=== PATIENT | male | born 1950 | race Caucasian/White ===

== ENCOUNTER 2022-06-16 17:09 | Emergency (ER) | payer MEDICARE, SELFPAY ==
--- NOTE | ~2022-06-16 | XR_ITS ---
EXAMINATION: XR CHEST CLINICAL INFORMATION: Shortness of breath COMPARISON: None TECHNIQUE: Frontal view of the chest was obtained. 6:13 PM FINDINGS: Blunting of left costophrenic angle due to pleural effusion and/or pleural thickening. There is no right-sided pleural effusion. Lung volume is low. This causes crowding of bronchovascular markings. Allowing for the low inspiratory effort there is no significant pulmonary vascular congestion. There is no focal consolidation. XR/XR chest 1V IMPRESSION: 1. Blunting of left costophrenic angle due to pleural effusion and/or pleural thickening. 2. No significant pulmonary vascular congestion.
[2022-06-16 17:16] VITALS: BP 121/82; PULSE 90; RESP 20; TEMP 36.7; O2SAT 95; BMI 41.8
--- NOTE | 2022-06-16 17:22 | ECG_ITS ---
Test Reason : sob Blood Pressure : / mmHG Vent. Rate : 092 BPM Atrial Rate : 000 BPM P-R Int : 000 ms QRS Dur : 096 ms QT Int : 378 ms P-R-T Axes : 000 -32 123 degrees QTc Int : 467 ms Atrial fibrillation with premature ventricular or aberrantly conducted complexes Left axis deviation Inferior infarct , age undetermined Anterior infarct , age undetermined T wave abnormality, consider lateral ischemia Abnormal ECG No previous ECGs available Referred By: Generic ED Physician Electronically Signed By:Yahir Munoz
--- NOTE | 2022-06-16 17:47 | ED.SOB ---
HPI - SOB/Dyspnea General Chief Complaint: Dyspnea Stated Complaint: DIFF BREATHING Related Data Allergies Allergy/AdvReac Type Severity Reaction Status Date / Time No Known Allergies Allergy Verified 06/16/22 17:47 [facility] Social History Social History Advance Directives: No Advance Directives Information Provided: No Physical Exam Vital Signs: Vital Signs: Last Vital Signs Temp 98.0 F 06/16/22 17:16 Pulse 90 06/16/22 17:16 Resp 20 06/16/22 17:16 BP 121/82 06/16/22 17:16 Pulse Ox 95 06/16/22 17:16 O2 Del Method 06/16/22 17:16 BMI result Body Mass Index 41.8 Course Course Course Narrative: This is a rapid medical exam. Deferred additional HPI, ROS, PE to primary provider. 72 yo male with history of lung cancer here with chronic shortness of breath for years with negative w/us at [facility]. Today worsening shortness of breath this morning. No chest pain, fever, cough. VSS. Will obtain labs, EKG, chest x-ray, bile 10 Medical Decision Making Lab Data 06/16/22 17:35 06/16/22 17:35 Labs: Lab Results 06/16/22 06/16/22 06/16/22 Range/Units 17:35 17:35 17:35 WBC 7.8 (4.8-10.8) X10*3/uL RBC 4.20 L (4.60-5.80) X10*6/uL Hgb 11.1 L (14.0-18.0) g/dl Hct 36.4 L (42.0-52.0) % MCV 86.7 (80.0-98.0) fL MCH 26.4 L (27.0-33.0) pg MCHC 30.5 L (31.0-36.0) g/dl RDW 15.4 (11.0-16.0) % Plt Count 265 (160-400) X10*3/uL MPV 10.5 (9.4-12.4) fL Immature Gran % (Auto) 0.4 (0.0-0.4) % Neut % (Auto) 75.3 H (45-73) % Lymph % (Auto) 12.1 L (20-40) % [place] % (Auto) 7.5 (2-11) % Eos % (Auto) 4.1 H (0-4) % Baso % (Auto) 0.6 (0-2) % Lymph # (Auto) 1.0 L (1.2-4.9) X10*3/uL [place] # (Auto) 0.6 (0.1-1.2) X10*3/uL Eos # (Auto) 0.3 (0.0-0.4) X10*3/uL Baso # (Auto) 0.1 (0.0-0.2) X10*3/uL Abs Immat Gran (auto) 0.03 (0.00-0.03) X10*3/uL Absolute Neuts (auto) 5.9 (2.0-8.3) x10*3/uL Absolute Nucleated RBC 0.000 (0.0-0.012) X10*3/uL Nucleated RBC % (auto) 0.0 (0.0-0.2) /100WBC Sodium 146 H (135-145) mmol/L Potassium 4.0 (3.3-5.1) mmol/L Chloride 109 H (96-108) mmol/L Carbon Dioxide 24 (22-29) mmol/L Anion Gap 17 (12-20) BUN 33 H (9-16) mg/dL Creatinine 1.23 (0.5-1.4) mg/dL Estim Creat Clear Calc 75.3 Estimated GFR 58 Random Glucose 259 H (60-115) mg/dL Calcium 9.4 (8.4-10.2) mg/dL Total Bilirubin 0.7 (0.0-1.0) mg/dL AST 11 (5-37) U/L ALT 13 (0-40) U/L Alkaline Phosphatase 100 (39-117) U/L Troponin I High Sens 15.3 (<3.5-35.0) ng/L B-Natriuretic Peptide (<100) pg/mL Total Protein 6.3 L (6.5-8.0) g/dL Albumin 3.9 (3.5-5.0) g/dL Influenza Type A (PCR) (Negative) Influenza Type B (PCR) (Negative) RSV RNA Qual (PCR) (Negative) SARS-CoV-2 RNA (RT-PCR) (Negative) 06/16/22 06/16/22 Range/Units 17:35 17:37 WBC (4.8-10.8) X10*3/uL RBC (4.60-5.80) X10*6/uL Hgb (14.0-18.0) g/dl Hct (42.0-52.0) % MCV (80.0-98.0) fL MCH (27.0-33.0) pg MCHC (31.0-36.0) g/dl RDW (11.0-16.0) % Plt Count (160-400) X10*3/uL MPV (9.4-12.4) fL Immature Gran % (Auto) (0.0-0.4) % Neut % (Auto) (45-73) % Lymph % (Auto) (20-40) % [place] % (Auto) (2-11) % Eos % (Auto) (0-4) % Baso % (Auto) (0-2) % Lymph # (Auto) (1.2-4.9) X10*3/uL [place] # (Auto) (0.1-1.2) X10*3/uL Eos # (Auto) (0.0-0.4) X10*3/uL Baso # (Auto) (0.0-0.2) X10*3/uL Abs Immat Gran (auto) (0.00-0.03) X10*3/uL Absolute Neuts (auto) (2.0-8.3) x10*3/uL Absolute Nucleated RBC (0.0-0.012) X10*3/uL Nucleated RBC % (auto) (0.0-0.2) /100WBC Sodium (135-145) mmol/L Potassium (3.3-5.1) mmol/L Chloride (96-108) mmol/L Carbon Dioxide (22-29) mmol/L Anion Gap (12-20) BUN (9-16) mg/dL Creatinine (0.5-1.4) mg/dL Estim Creat Clear Calc Estimated GFR Random Glucose (60-115) mg/dL Calcium (8.4-10.2) mg/dL Total Bilirubin (0.0-1.0) mg/dL AST (5-37) U/L ALT (0-40) U/L Alkaline Phosphatase (39-117) U/L Troponin I High Sens (<3.5-35.0) ng/L B-Natriuretic Peptide 756 H (<100) pg/mL Total Protein (6.5-8.0) g/dL Albumin (3.5-5.0) g/dL Influenza Type A (PCR) NEGATIVE (Negative) Influenza Type B (PCR) NEGATIVE (Negative) RSV RNA Qual (PCR) NEGATIVE (Negative) SARS-CoV-2 RNA (RT-PCR) NEGATIVE (Negative) Discharge Plan Discharge Clinical Impression: Shortness of breath Patient Disposition: Elopement Interventions: ED Discharge Assessment Last Done: 06/16/22 20:45 Discharge Date/Time: 06/16/22 19:59
[2022-06-16 17:54] LABS: MANUAL DIFF FLAG NO
[2022-06-16 17:55] LABS: Basophils Absolute Auto 0.1 X10*3/uL (0.0-0.2); Basophils Percent Auto 0.6 % (0-2); Eosinophils Absolute Auto 0.3 X10*3/uL (0.0-0.4); Eosinophils Percent Auto 4.1 % (0-4); Hematocrit 36.4 % (42.0-52.0); Hemoglobin 11.1 g/dl (14.0-18.0); Imm Gran Abs Auto 0.03 X10*3/uL (0.00-0.03); Imm Gran Pct Auto 0.4 % (0.0-0.4); Lymphocytes Percent Auto 12.1 % (20-40); Mean Corpuscular HGB Conc 30.5 g/dl (31.0-36.0); Mean Corpuscular Hemoglobin 26.4 pg (27.0-33.0); Mean Corpuscular Volume 86.7 fL (80.0-98.0); Mean Platelet Volume 10.5 fL (9.4-12.4); Monocytes Absolute Auto 0.6 X10*3/uL (0.1-1.2); Monocytes Percent Auto 7.5 % (2-11); Neutrophils Absolute Auto 5.9 x10*3/uL (2.0-8.3); Neutrophils Percent Auto 75.3 % (45-73); Platelet Count 265 X10*3/uL (160-400); Red Cell Distribution Width 15.4 % (11.0-16.0); White Blood Count 7.8 X10*3/uL (4.8-10.8)
[2022-06-16 18:09] LABS: Alanine Aminotransferase 13 U/L (0-40); Albumin Level 3.9 g/dL (3.5-5.0); Alkaline Phosphatase 100 U/L (39-117); Anion Gap 17 (12-20); Aspartate Amino Transferase 11 U/L (5-37); Bilirubin Total 0.7 mg/dL (0.0-1.0); Blood Urea Nitrogen 33 mg/dL (9-16); Calcium 9.4 mg/dL (8.4-10.2); Carbon Dioxide 24 mmol/L (22-29); Chloride 109 mmol/L (96-108); Creatinine Clr Calc Pharmacy 75.3; Estimated Glomerular Filt Rate 58; Glucose Random 259 mg/dL (60-115); Sodium 146 mmol/L (135-145); Total Protein 6.3 g/dL (6.5-8.0)
[2022-06-16 18:14] LABS: B Type Natriuretic Peptide 756 pg/mL (<100)
[2022-06-16 18:16] LABS: Troponin-I High Sensitivity 15.3 ng/L (<3.5-35.0)
[2022-06-16 18:31] LABS: Influenza A PCR NEGATIVE (Negative); Influenza B PCR NEGATIVE (Negative); Resp Syncy Virus RNA Qual PCR NEGATIVE (Negative); SARS COV2 PCR INHOUSE NEGATIVE (Negative)
== END 2022-06-16 19:59 | disposition left against medical advice (07) ==
PROVIDERS: Emergency Provider Emergency Medicine; PCP Internal Medicine
DX: R06.02 Shortness of breath (principal); Z20.822 Contact with and (suspected) exposure to COVID-19; Z20.828 Contact with and (suspected) exposure to other viral communicable diseases; Z79.899 Other long term (current) drug therapy
CPT/HCPCS: 0241U; 71045; 80053; 83880; 84484; 85025; 93005; 99283